=== PATIENT | male | born 1945 ===

== ENCOUNTER 2023-03-25 09:15 | Inpatient (IN) | payer OTHER ==
[~2023-03-25] VITALS: Ht 162.6 cm; Wt 83.0 kg
[2023-03-25 11:27] LABS: PH,URINE 5.5 (5.0-8.0); URINE APPEARANCE Clear; URINE BILIRRUBIN Negative (NEGATIVE); URINE BLOOD Negative; URINE COLOR Yellow; URINE GLUCOSE Negative (NEGATIVE); URINE LEUKOCYTE Small; URINE NITRATE Negative; URINE PROTEIN 30 (NEGATIVE)
[2023-03-25 11:28] LABS: HEMATOCRIT 40.6 % (39.0-48.0); HEMOGLOBIN 13.5 g/dL (13-16.00); MEAN CELL VOLUME 89.5 fL (80.0-100.00); MEAN CORPUSCULAR HEMOGLOBIN 29.7 pg (27.00-32.0); MEAN CORPUSCULAR HGB CONC 33.2 g/dl (32.0-36.0); PLATELET COUNT 277 K/uL (150-450); RED BLOOD COUNT 4.54 M/uL (4.00-6.00); RED CELL DISTRIBUTION WIDTH 15.5 % (11.5-14.5)
[2023-03-25 11:31] LABS: URINE BACTERIA 25.1 uL (0.0-1933); URINE EPITHELIAL CELLS 1.6 uL (0.0-38.8); URINE RBC 4.5 uL (0.0-20.8); URINE WBC 4.6 uL (0.0-23.2)
[2023-03-25 12:01] LABS: ALBUMIN 3.6 gm/dL (3.4-5.0); BILIRUBIN TOTAL 1.03 mg/dL (0.3-1.2); CREATININE SERUM 1.35 mg/dL (0.70-1.30); GFR 51.52; GLOBULINA 4.5 G/DL (2.4-3.5); INR 1.04; PARTIAL THROMBOPLASTIN TIME 29.3 SECONDS (22.0-34.0); POTASSIUM 5.23 mEq/L (3.5-5.1); PROTHROMBIN TIME 10.9 SECONDS (9.0-11.5); TOTAL PROTEIN 8.1 gm/dL (6.4-8.2); TSH 1.92 uIU/mL (0.358-3.74)
[2023-03-25 12:13] LABS: RH POSITIVE
[2023-03-25] MEDS ORDERED: ELIQUIS5 MG PO (12:27)
[2023-03-25] MEDS ORDERED: SINGULAIR10 MG PO (12:28)
[2023-03-25] MEDS ORDERED: ZOCOR20 MG PO (12:29)
[2023-03-25] MEDS ORDERED: METFORMIN HCL1000 M3 PO (12:30)
[2023-03-25] MEDS ORDERED: MAGNESIUM200 MG PO (12:31)
[2023-03-25] MEDS ORDERED: DILTIAZEM ER120 MG PO (12:31)
[2023-03-28 20:48] LABS: HEMATOCRIT 40.9 % (39.0-48.0); HEMOGLOBIN 13.1 g/dL (13-16.00); MEAN CELL VOLUME 90.4 fL (80.0-100.00); MEAN CORPUSCULAR HEMOGLOBIN 28.9 pg (27.00-32.0); PLATELET COUNT 252 K/uL (150-450); RED BLOOD COUNT 4.53 M/uL (4.00-6.00); RED CELL DISTRIBUTION WIDTH 14.8 % (11.5-14.5)
[2023-03-28 21:08] LABS: ALBUMIN 3.2 gm/dL (3.4-5.0); CALCIUM 8.6 mg/dL (8.5-10.1); CREATININE SERUM 1.57 mg/dL (0.70-1.30); GFR 43.28; MAGNESIUM 1.8 mg/dL (1.8-2.4); PHOSPHOROUS 4.8 mg/dL (2.5-4.9); POTASSIUM 4.65 mEq/L (3.5-5.1)
[2023-03-29 08:48] LABS: HEMATOCRIT 38.3 % (39.0-48.0); HEMOGLOBIN 12.8 g/dL (13-16.00); MEAN CELL VOLUME 88.9 fL (80.0-100.00); MEAN CORPUSCULAR HEMOGLOBIN 29.7 pg (27.00-32.0); MEAN CORPUSCULAR HGB CONC 33.4 g/dl (32.0-36.0); PLATELET COUNT 225 K/uL (150-450); RED BLOOD COUNT 4.31 M/uL (4.00-6.00); RED CELL DISTRIBUTION WIDTH 14.7 % (11.5-14.5)
[2023-03-29 09:43] LABS: ALBUMIN 2.9 gm/dL (3.4-5.0); CALCIUM 8.6 mg/dL (8.5-10.1); CREATININE SERUM 1.41 mg/dL (0.70-1.30); MAGNESIUM 1.8 mg/dL (1.8-2.4); PHOSPHOROUS 3.7 mg/dL (2.5-4.9); POTASSIUM 4.55 mEq/L (3.5-5.1)
[2023-03-30 07:24] LABS: HEMATOCRIT 35.6 % (39.0-48.0); MEAN CELL VOLUME 89.4 fL (80.0-100.00); MEAN CORPUSCULAR HEMOGLOBIN 30.1 pg (27.00-32.0); MEAN CORPUSCULAR HGB CONC 33.7 g/dl (32.0-36.0); PLATELET COUNT 206 K/uL (150-450); RED BLOOD COUNT 3.99 M/uL (4.00-6.00); RED CELL DISTRIBUTION WIDTH 15.4 % (11.5-14.5)
[2023-03-30 07:51] LABS: ALBUMIN 2.7 gm/dL (3.4-5.0); CALCIUM 8.2 mg/dL (8.5-10.1); CREATININE SERUM 1.1 mg/dL (0.70-1.30); GFR 65.26; MAGNESIUM 1.9 mg/dL (1.8-2.4); PHOSPHOROUS 2.7 mg/dL (2.5-4.9); POTASSIUM 4.23 mEq/L (3.5-5.1)
[2023-04-02 06:20] LABS: HEMATOCRIT 37.1 % (39.0-48.0); HEMOGLOBIN 12.2 g/dL (13-16.00); MEAN CELL VOLUME 90.4 fL (80.0-100.00); MEAN CORPUSCULAR HEMOGLOBIN 29.7 pg (27.00-32.0); MEAN CORPUSCULAR HGB CONC 32.9 g/dl (32.0-36.0); PLATELET COUNT 258 K/uL (150-450)
[2023-04-02 06:44] LABS: ALBUMIN 2.5 gm/dL (3.4-5.0); CALCIUM 8.5 mg/dL (8.5-10.1); CREATININE SERUM 1.02 mg/dL (0.70-1.30); GFR 71.2; MAGNESIUM 1.8 mg/dL (1.8-2.4); PHOSPHOROUS 4.1 mg/dL (2.5-4.9); POTASSIUM 4.2 mEq/L (3.5-5.1)
[2023-04-02] MEDS ORDERED: CANDESARTAN CIL32 MG (11:57)
[2023-04-02] MEDS ORDERED: LATANOPROST2.5 ML (11:57)
[2023-04-02] MEDS ORDERED: FLONASE16 GM (11:57)
[2023-04-02] MEDS ORDERED: TAMSULOSIN HCL0.4 MG (12:00)
[2023-04-02] MEDS ORDERED: ZANAFLEX2 MG (12:00)
[2023-04-02] MEDS ORDERED: ROPINIROLE HCL4 MG (12:00)
[2023-04-02] MEDS ORDERED: FINASTERIDE5 MG (12:01)
[2023-04-02] MEDS ORDERED: FOLIC ACID1 MG (12:03)
[2023-04-02] MEDS ORDERED: ZINC50 MG (12:03)
== END 2023-04-04 12:36 | disposition home or self-care (01) | DRG 330 ==
LOC: O/R 03-28 08:23 → SURG 03-28 09:15 → SURH 03-28 18:53
PROVIDERS: ADMIT Colon & Rectal Surgery; ATTEND Colon & Rectal Surgery
PROC: 0DBP4ZZ Excision of Rectum, Percutaneous Endoscopic Approach (ICD-10-PCS; 2023-03-28)
PROC: 0DNW4ZZ Release Peritoneum, Percutaneous Endoscopic Approach (ICD-10-PCS; 2023-03-28)
PROC: 0DTN4ZZ Resection of Sigmoid Colon, Percutaneous Endoscopic Approach (ICD-10-PCS; principal; 2023-03-28 13:30)
DX: K57.20 Diverticulitis of large intestine with perforation and abscess without bleeding (principal); K56.600 Partial intestinal obstruction, unspecified as to cause; K43.9 Ventral hernia without obstruction or gangrene; K66.0 Peritoneal adhesions (postprocedural) (postinfection)